=== PATIENT | male | born 1985 | race Hispanic/Latino ===

== ENCOUNTER 2018-01-07 07:38 | Emergency (ER) | payer SELFPAY ==
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
[2018-01-07 08:36] LABS: Absolute Lymphocytes (CBC) 1.1 K/uL (0.7-4.9); Absolute Monocytes 0.4 K/uL (0.1-1.3); Absolute Neutrophil 3.6 K/uL (1.8-8.0); Basophils % 0.1 % (0-1.3); Eosinophils % 0.9 % (0-4.4); Hematocrit 41.3 % (39.6-49.0); Lymphocytes % 22.2 % (15.3-44.8); MCH 29.5 pg (27.0-35.0); MCV 88.7 fL (80-100); MPV 10.2 fL (7.6-11.3); Monocytes % 8.1 % (3.3-12.3); RBC Red Blood Cell Count 4.65 M/uL (4.33-5.43)
[2018-01-07] MEDS ORDERED: KETOROLAC 30 MG/ML INJ ONE (08:38)
[2018-01-07 08:45] LABS: BUN Blood Urea Nitrogen 17 mg/dL (7-18); Bicarbonate 26 mmol/L (21-32); Glucose Level 104 mg/dL (74-106); Potassium 4.4 mmol/L (3.5-5.1); Sodium Level 140 mmol/L (136-145)
== END 2018-01-07 08:46 | disposition home or self-care (01) ==
LOC: ER 07:38
DX: S16.1XXA Strain of muscle, fascia and tendon at neck level, initial encounter (principal); S39.012A Strain of muscle, fascia and tendon of lower back, initial encounter; S29.012A Strain of muscle and tendon of back wall of thorax, initial encounter; S40.012A Contusion of left shoulder, initial encounter; V49.40XA Driver injured in collision with unspecified motor vehicles in traffic accident, initial encounter
CPT/HCPCS: 36415; 70450; 71260; 72125; 74177; 80048; 85025; Q9967

== ENCOUNTER 2018-09-06 09:47 | Emergency (ER) | payer BC, SELFPAY ==
[2018-09-06] MEDS ORDERED: LIDOCAINE 1% W/EPI 1:100,000 MDV 50 ML VIAL ONE (11:27)
[2018-09-06] MEDS ORDERED: TETANUS & DIPHTHERIA TOX,ADULT 0.5 ML VIAL ONE (11:27)
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
== END 2018-09-06 11:36 | disposition home or self-care (01) ==
LOC: ER 09:47
PROC: 0JQ10ZZ Repair Face Subcutaneous Tissue and Fascia, Open Approach (ICD-10-PCS; principal; 2018-09-06)
DX: S01.111A Laceration without foreign body of right eyelid and periocular area, initial encounter (principal); W22.8XXA Striking against or struck by other objects, initial encounter; Y93.89 Activity, other specified; Y92.009 Unspecified place in unspecified non-institutional (private) residence as the place of occurrence of the external cause; Z23 Encounter for immunization
CPT/HCPCS: 90471; 90714; 99283

== ENCOUNTER 2020-10-23 08:49 | Inpatient (IN) | payer BC, SELFPAY ==
--- NOTE | 2020-10-23 09:49 | RAD REPORT ---
EXAM DESCRIPTION: RAD - Chest Single View - 10/23/2020 9:26 am CLINICAL HISTORY: Cough;SOB COMPARISON: None TECHNIQUE: AP portable chest image was obtained 10/23/2020 9:26 am . FINDINGS: Lungs are underinflated. Extensive bilateral airspace opacification is present with relati ve sparing of each apex. Heart and vasculature are normal. No measurable pleural effusion and no pneu mothorax. No acute bony abnormality seen. No acute aortic findings suspected. IMPRESSION: Extensive bilateral airspace opacification with no relevant prior imaging In the acute clinical setting bilateral pneumonia is most likely. In the current clinical environment moderate severity COVID-19 pneumonia would be a primary consideration.
[2020-10-23 10:29] LABS: Absolute Lymphocytes (CBC) 0.3 K/uL (0.7-4.9); Basophils % 0.3 % (0-1.3); Hematocrit 40.7 % (39.6-49.0); Lymphocytes % 3.6 % (15.3-44.8); MPV 8.1 fL (7.6-11.3); RBC Red Blood Cell Count 4.73 M/uL (4.33-5.43)
[2020-10-23] MEDS ORDERED: METHYLPREDNISOLONE 125 MG INJ ONE (10:30)
[2020-10-23] MEDS ORDERED: NA CHLORIDE 0.9% 1,000 ML ONE (10:31)
[2020-10-23] MEDS ORDERED: BENZONATATE 100 MG CAP PO ONE (10:31)
[2020-10-23 10:42] LABS: Protime INR 1.25
[2020-10-23 11:03] LABS: ALT/SGPT 72 U/L (12-78); AST/SGOT 66 U/L (15-37); Albumin 2.5 g/dL (3.4-5.0); Alkaline Phosphatase 51 U/L (45-117); BUN Blood Urea Nitrogen 12 mg/dL (7-18); Bicarbonate 25 mmol/L (21-32); Bilirubin Direct 0.2 mg/dL (0-0.2); Bilirubin Total 0.5 mg/dL (0.2-1.0); Ferritin 6488.3 ng/mL (26-388); Glucose Level 121 mg/dL (74-106); Magnesium 2.2 mg/dL (1.8-2.4); NT PRO-BNP 101 pg/mL (<125); Potassium 3.7 mmol/L (3.5-5.1); Protein, Total 7.5 g/dL (6.4-8.2); Sodium Level 135 mmol/L (136-145); Troponin (Emerg Dept Use Only) < 0.02 ng/mL (0.0-0.045)
--- NOTE | 2020-10-23 11:24 | EDPHYS ---
Physician Documentation [facility] Name: Devan East Age: 34 yrs Sex: Male : 1985 Arrival Date: 10/23/2020 Time: 08:50 Bed 27 Private MD: ED Physician Ole Evangelista HPI: 10/23 09:10 This 34 yrs old Male presents to ER via EMS with complaints of Cough, cp Breathing Difficulty - COVID+. 09:10 The patient or guardian reports cough, that is constant, difficulty breathing. Onset: cp The symptoms/episode began/occurred 3 day(s) ago. Severity of symptoms: in the emergency department the symptoms are unchanged, despite home interventions. Associated signs and symptoms: Pertinent positives: chest pain, with cough, Pertinent negatives: diarrhea, fever, vomiting. Patient reports testing positive for COVID 11 days ago. Historical: - Allergies: 09:30 No Known Allergies; bp - Home Meds: 09:30 None [Active]; bp - PMHx: 09:30 None; bp - Immunization history:: Adult Immunizations up to date. - Social history:: Smoking status: Patient denies any tobacco usage or history of. ROS: 09:15 Constitutional: Negative for body aches, chills, fever, poor PO intake. cp 09:15 Eyes: Negative for injury, pain, redness, and discharge. cp 09:15 ENT: Negative for ear pain, sore throat, difficulty swallowing, difficulty handling secretions. 09:15 Cardiovascular: Positive for chest pain, Negative for edema, palpitations. 09:15 Respiratory: Positive for cough, shortness of breath, at rest. Negative for wheezing. 09:15 Abdomen/GI: Positive for nausea, Negative for abdominal pain, vomiting, diarrhea, constipation. 09:15 Neuro: Negative for altered mental status, dizziness, headache, syncope, weakness. 09:15 All other systems are negative. Exam: 09:20 Constitutional: The patient appears in no acute distress, alert, awake, cp non-diaphoretic, non-toxic, well developed, well nourished. 09:20 Head/Face: Normocephalic, atraumatic. cp 09:20 Eyes: Periorbital structures: appear normal, Conjunctiva: normal, no exudate, no injection, Sclera: no appreciated abnormality, Lids and lashes: appear normal, bilaterally. 09:20 ENT: External ear(s): are unremarkable, Nose: is normal, Mouth: Lips: moist, Oral mucosa: moist, Posterior pharynx: Airway: no evidence of obstruction, patent. 09:20 Neck: ROM/movement: is normal, is supple, without pain, no range of motions limitations, no meningismus. 09:20 Chest/axilla: Inspection: normal, Palpation: is normal, no crepitus, no tenderness. 09:20 Cardiovascular: Rate: normal, Rhythm: regular, Edema: is not appreciated, JVD: is not appreciated. 09:20 Respiratory: the patient does not display signs of respiratory distress, Respirations: labored breathing, that is mild, shallow respirations, that is mild, Breath sounds: bronchial sounds, that are mild, are heard diffusely, decreased breath sounds, that are mild, diffuse, stridor, is not appreciated, wheezing: is not appreciated. 09:20 Abdomen/GI: Inspection: abdomen appears normal, Palpation: abdomen is soft and non-tender, in all quadrants. 09:20 Back: pain, is absent, ROM is normal. 09:20 Skin: cellulitis, is not appreciated, no rash present. 09:20 Neuro: Orientation: to person, place \\T\\ time. Mentation: is normal. 10:23 ECG was reviewed by the Attending Physician. cp Vital Signs: 10:00 BP 118 / 74; Pulse 95; Resp 24; Pulse Ox 99% ; bp 11:00 BP 115 / 76; Pulse 90; Resp 16; Pulse Ox 99% ; bp 12:00 BP 119 / 64; Pulse 54; Resp 24; Pulse Ox 99% ; bp 13:00 BP 122 / 78; Pulse 75; Resp 20; Pulse Ox 100% ; bp 14:00 BP 119 / 70; Pulse 81; Resp 16; Pulse Ox 99% ; bp MDM: 09:02 Patient medically screened. cp 10:00 Differential Diagnosis: Bronchitis Influenza Pneumonia Other respiratory failure, cp pulmonary edema, pulmonary embolism. 12:00 Data reviewed: vital signs, nurses notes, lab test result(s), EKG, radiologic studies, cp CT scan, plain films, and as a result, I will admit patient. 12:00 Test interpretation: by ED physician or midlevel provider: ECG, plain radiologic cp studies. Counseling: I had a detailed discussion with the patient and/or guardian regarding: the historical points, exam findings, and any diagnostic results supporting the discharge/admit diagnosis, lab results, radiology results, the need for further work-up and treatment in the hospital. Response to treatment: the patient's symptoms have mildly improved after treatment. Physician consultation: was contacted at 11:30, regarding admission, to the telemetry unit. patient's condition, GEORGIE Davis hospitalist will admit patient. 10/23 09:07 Order name: Basic Metabolic Panel; Complete Time: 11:06 cp / 11:06 Interpretation: Normal except: NA 135; GLUC 121; GFR 86; CA 8.3. cp 10/23 09:07 Order name: CBC with Diff; Complete Time: 12:33 cp 10/23 10:50 Interpretation: Normal except: SOHAIL% 93.8; LYM% 3.6; MN% 2.3; LYMA 0.3. cp 10/23 09:07 Order name: LFT's; Complete Time: 11:06 cp 10/23 11:06 Interpretation: Normal except: AST 66; ALB 2.5; GLOB 5.0; A/G 0.5. cp 10/23 09:07 Order name: Magnesium; Complete Time: 11:06 cp 10/23 09:07 Order name: NT PRO-BNP; Complete Time: 11:06 cp 10/23 09:07 Order name: PT-INR; Complete Time: 10:49 cp / 11:07 Interpretation: Abnormal: PT 14.4. cp 10/23 09:07 Order name: Troponin (emerg Dept Use Only); Complete Time: 11:06 cp 10/23 11:07 Interpretation: Within normal limits: TROPED < 0.02. cp 10/23 09:07 Order name: CRP; Complete Time: 11:06 cp /02 11:06 Interpretation: Abnormal: C-REACTIVE PROT 178.00. cp / 09:07 Order name: Ferritin; Complete Time: 11:06 cp / 11:07 Interpretation: Abnormal: SILVANA 6488.3. cp 10/23 09:07 Order name: D-Dimer; Complete Time: 10:49 cp 10/23 10:49 Interpretation: Abnormal: D-DIMER 1616. cp / 10:35 Order name: CBC Smear Scan; Complete Time: 12:33 EDMS 10/23 12:33 Interpretation: Reviewed. 10/23 12:52 Order name: COVID-19 : Document "Date of Symptom Onset" if Symptomatic. 10/23 13:08 Order name: Hemoglobin A1c; Complete Time: 22:50 EDMS 10/23 13:52 Order name: CORONAVIRUS EDNJ 10/23 09:07 Order name: XRAY Chest (1 view); Complete Time: 10:20 10/23 10:20 Interpretation: Report reviewed. 10/23 09:07 Order name: EKG; Complete Time: 09:08 cp 10/23 09:07 Order name: Cardiac monitoring; Complete Time: 09:28 cp 10/23 09:07 Order name: EKG - Nurse/Tech; Complete Time: 10:41 cp 10/23 09:07 Order name: IV Saline Lock; Complete Time: 10:41 cp 10/23 10:50 Order name: CT Chest For PE Angio; Complete Time: 11:50 10/23 11:51 Interpretation: Report reviewed. 10/23 15:07 Order name: SARS-COV-2 RT PCR; Complete Time: 22:50 EDMS 10/23 15:38 Order name: Troponin I; Complete Time: 22:50 EDMS 10/24 06:11 Order name: D-Dimer EDNJ 10/24 06:28 Order name: Comprehensive Metabolic Panel EDNJ 10/24 06:28 Order name: Lipid Profile EDNJ 10/24 06:32 Order name: C-Reactive Protein EDNJ 10/24 06:32 Order name: Ferritin EDNJ 10/23 09:07 Order name: Labs collected and sent; Complete Time: 10:41 cp 10/23 09:07 Order name: O2 Per Protocol; Complete Time: 09:28 cp 10/23 09:07 Order name: O2 Sat Monitoring; Complete Time: 09:28 cp EC:23 Rate is 89 beats/min. Rhythm is regular. LA interval is normal. QRS interval is normal. cp QT interval is normal. T waves are Inverted in leads III, aVR. Interpreted by me. Reviewed by me. Administered Medications: 09:45 Drug: NS 0.9% 1000 ml Route: IV; Rate: 1 bolus; Site: left antecubital; bp 14:39 Follow up: IV Status: Completed infusion; IV Intake: 1000ml bp 09:45 Drug: Tessalon Perle (benzonatate) 200 mg Route: PO; bp 12:02 Follow up: Response: No adverse reaction bp 09:50 Drug: SOLU-Medrol (methylPrednisoLONE) 125 mg Route: IVP; Site: left antecubital; bp 12:02 Follow up: Response: No adverse reaction bp Disposition: 10/25 07:12 Co-signature as Attending Physician, Ole Evangelista MD I agree with the assessment and kdr plan of care. Disposition Summary: 10/23/20 11:23 Hospitalization Ordered Hospitalization Status: Inpatient Admission cp Condition: Stable cp Problem: new cp Symptoms: have improved cp Bed/Room Type: Standard cp Provider: Smith Nicole(10/23/20 11:28) cp Location: Telemetry/MedSurg (Inpatient)(10/24/20 17:20) dw Room Assignment: 408(10/24/20 17:20) dw Diagnosis - Other viral pneumonia cp - SARS-associated coronavirus as the cause of diseases classified elsewhere cp - Hypoxemia cp Forms: - Medication Reconciliation Form cp - SBAR form cp Signatures: Dispatcher [employer] Mara Galvan RN RN dw Ole Evangelista MD MD kdr Aquilino Mercer, [employer] BI ADMINISTRATOR-C [employer] BI ADMINISTRATOR-Cla1 Krunal Mas PA PA cp Petey Tavarez, RN RN bp Corrections: (The following items were deleted from the chart) 10/23 11:28 11:23 Eh Ibarra cp cp 14:37 11:23 Telemetry/MedSurg (Inpatient) cp bp 14:37 11:23 cp bp 10/24 17:20 10/23 14:37 [facility] ER HOLD bp dw 10/24 17:20 10/23 14:37 ERHOLD- bp dw
--- NOTE | 2020-10-23 11:24 | ER ---
Nurse's Notes [facility] Name: Devan East Age: 34 yrs Sex: Male : 1985 Arrival Date: 10/23/2020 Time: 08:50 Bed 27 Private MD: Diagnosis: Other viral pneumonia;SARS-associated coronavirus as the cause of diseases classified elsewhere;Hypoxemia Presentation: 10/23 08:51 Chief complaint: EMS states: COVID + 11 days ago, productive cough and diff breathing X iw 3 days, diminished breath sounds was 70's SpO2 on scene, on 6L NC up to 93%. Coronavirus screen: Client presents with at least one sign or symptom that may indicate coronavirus-19. Standard/surgical mask placed on the client. Provider contacted for isolation considerations. Ebola Screen: Patient negative for fever greater than or equal to 101.5 degrees Fahrenheit, and additional compatible Ebola Virus Disease symptoms Patient denies exposure to infectious person. Patient denies travel to an Ebola-affected area in the 21 days before illness onset. No symptoms or risks identified at this time. 08:51 Method Of Arrival: EMS: [facility] iw 08:51 Acuity: DALTON 2 iw 08:52 Risk Assessment: Do you want to hurt yourself or someone else? Patient reports no iw desire to harm self or others. Onset of symptoms was October 23, 2020. 08:54 Care prior to arrival: Medication(s) given: Albuterol Neb x 1, Atrovent Neb x 1, Normal iw saline infusion, 500 mL, Tylenol, 1000 mg, Solu-Medrol 125 mg. 09:00 Initial Sepsis Screen: Does the patient meet any 2 criteria? No. Patient's initial bp sepsis screen is negative. Does the patient have a suspected source of infection? Yes: Productive cough/pneumonia. Triage Assessment: 09:02 General: Appears in no apparent distress. comfortable, Behavior is calm, cooperative, bp appropriate for age. Pain: Denies pain. EENT: No deficits noted. Neuro: Level of Consciousness is awake, alert, obeys commands, Oriented to Appropriate for age. Cardiovascular: Reports. Respiratory: Reports shortness of breath Onset: The symptoms/episode began/occurred yesterday, the patient has moderate shortness of breath. GI: No signs and/or symptoms were reported involving the gastrointestinal system. : No signs and/or symptoms were reported regarding the genitourinary system. Derm: No deficits noted. Musculoskeletal: No deficits noted. Historical: - Allergies: :30 No Known Allergies; bp - Home Meds: :30 None [Active]; bp - PMHx: :30 None; bp - Immunization history:: Adult Immunizations up to date. - Social history:: Smoking status: Patient denies any tobacco usage or history of. Screenin:03 Abuse screen: Denies threats or abuse. Denies injuries from another. Nutritional bp screening: No deficits noted. Tuberculosis screening: No symptoms or risk factors identified. Fall Risk None identified. Assessment: 09:03 General: SEE TRIAGE NOTE. Pain: Denies pain. Neuro: Level of Consciousness is awake, bp alert, obeys commands. Cardiovascular: Rhythm is sinus rhythm. Respiratory: Airway is patent Respiratory effort is even, labored, Respiratory pattern is regular, symmetrical, Breath sounds are coarse bilaterally. GI: No signs and/or symptoms were reported involving the gastrointestinal system. : No signs and/or symptoms were reported regarding the genitourinary system. EENT: No deficits noted. Derm: No deficits noted. Musculoskeletal: No deficits noted. 11:00 Reassessment: No changes from previously documented assessment. Patient and/or family bp updated on plan of care and expected duration. Pain level reassessed. Patient is alert, oriented x 3, equal unlabored respirations, skin warm/dry/pink. 13:00 Reassessment: No changes from previously documented assessment. Patient and/or family bp updated on plan of care and expected duration. Pain level reassessed. ADMIT INITIATED. 14:40 Reassessment: PT TO ER HOLD. SEE [facility]. bp Vital Signs: 10:00 BP 118 / 74; Pulse 95; Resp 24; Pulse Ox 99% ; bp 11:00 BP 115 / 76; Pulse 90; Resp 16; Pulse Ox 99% ; bp 12:00 BP 119 / 64; Pulse 54; Resp 24; Pulse Ox 99% ; bp 13:00 BP 122 / 78; Pulse 75; Resp 20; Pulse Ox 100% ; bp 14:00 BP 119 / 70; Pulse 81; Resp 16; Pulse Ox 99% ; bp ED Course: 08:50 Patient arrived in ED. iw 08:52 Triage completed. iw 08:55 Arm band placed on. iw 08:57 Page, Krunal, PA is PHCP. cp 08:57 Ole Evangelista MD is Attending Physician. cp 09:00 Maintain EMS IV. Dressing intact. Good blood return noted. Site clean \T\ dry. Gauge \T\ bp site: 18 GA RIGHT AC. 09:01 Petey Tavarez, ANDIE is Primary Nurse. bp 09:03 Patient has correct armband on for positive identification. Bed in low position. Call bp light in reach. Side rails up X2. 09:26 XRAY Chest (1 view) In Process Unspecified. EDMS 11:21 Smith Nicole is Hospitalizing Provider. cp 11:21 Eh Ibarra DO is Hospitalizing Provider. cp 11:25 CT Chest For PE Angio In Process Unspecified. EDMS 11:28 Smith Nicole is Hospitalizing Provider. cp 14:38 No provider procedures requiring assistance completed. Patient admitted, IV remains in bp place. 10/24 08:26 Primary Nurse role handed off by Petey Tavarez RN bd Administered Medications: 10/23 09:45 Drug: NS 0.9% 1000 ml Route: IV; Rate: 1 bolus; Site: left antecubital; bp 14:39 Follow up: IV Status: Completed infusion; IV Intake: 1000ml bp 09:45 Drug: Tessalon Perle (benzonatate) 200 mg Route: PO; bp 12:02 Follow up: Response: No adverse reaction bp 09:50 Drug: SOLU-Medrol (methylPrednisoLONE) 125 mg Route: IVP; Site: left antecubital; bp 12:02 Follow up: Response: No adverse reaction bp Intake: 14:39 IV: 1000ml; Total: 1000ml. bp Outcome: 11:23 Decision to Hospitalize by Provider. cp 14:39 Admitted to ER Hold. Please see [facility] for further documentation. bp 14:39 Condition: stable 14:39 Instructed on the need for admit. 10/24 18:00 Patient left the ED. iw Signatures: Dispatcher [employer] EDMS Brenna Holloway Irene, RN RN Krunal Mas PA PA cp Petey Tavarez RN RN bp
--- NOTE | 2020-10-23 11:42 | RAD REPORT ---
EXAM DESCRIPTION: CT - Chest For Pe Angio - 10/23/2020 11:25 am CLINICAL HISTORY: SOB, COVID positive COMPARISON: No comparisons TECHNIQUE: Dynamically enhanced 3 mm thick images of the chest were obtained during administration o f approximately 150mL Isovue 370 IV contrast. Coronal and oblique MIP reconstruction images were gene rated and reviewed. Exam utilizes a protocol to evaluate the pulmonary arterial tree. All CT scans are performed using dose optimization technique as appropriate and may include automated exposure control or mA/KV adjustment according to patient size. FINDINGS: No pulmonary emboli are identified. The aorta as imaged shows no acute or suspicious finding. No pericardial thickening or effusion. Extensive bilateral airspace opacification is present more peripheral than central in distribution. F indings are more pronounced in each lung base. No cavitation or solid mass component. No pleural effu miguel or pleural thickening. No mediastinal or hilar suspicious masses. No chest wall masses or abnormal axillary lymphadenopathy. Heart is borderline enlarged. IMPRESSION: No pulmonary emboli identified. Moderate severity bilateral COVID-19 pneumonia.
[2020-10-23] MEDS ORDERED: ACETAMINOPHEN 500 MG TAB PO PRN (11:57)
[2020-10-23] MEDS ORDERED: ONDANSETRON 4 MG/2 ML VIAL IV PRN (11:57)
[2020-10-23 12:03] LABS: Blood Morphology Comment NOT SEEN (NOT SEEN); Platelet Estimate ADEQ; White Blood Cell Scan OK (OK)
[2020-10-23] MEDS ORDERED: ALBUTEROL INHALER 60 PUFF/8 GM IH PRN (12:07)
[2020-10-23] MEDS ORDERED: LABETALOL 20 MG/4ML SYRINGE IV PRN (12:18)
--- NOTE | 2020-10-23 12:22 | P.HP ---
Certification for Inpatient Patient admitted to: Inpatient With expected LOS: >2 Midnights Patient will require the following post-hospital care: None Practitioner: I am a practitioner with admitting privileges, knowledge of patient current condition, hospital course, and medical plan of care. Services: Services provided to patient in accordance with Admission requirements found in Title 42 Section 412.3 of the Code of Federal Regulations Patient History Date of Service: 10/23/20 Reason for admission: SOB History of Present Illness: Patient is a 34-year-old male with no known past medical history who presents with complaint of shortness of breath that has been ongoing for the past 5 days. Patient reported that he tested Covid positive for October 12, 2019. Patient reports associated signs or symptoms of weakness, fatigue, headache, fever, generalized body pains, chest tightness, chills, loss of appetite taste smell. Patient denies any other signs or symptoms. Symptoms are aggravated or relieved by nothing. Patient said to present to the hospital due to worsening symptoms. Of note, patient reported that his O2 sat dropped to 70% on room air while he was at home. Allergies No Known Allergies Allergy (Unverified 10/23/20 13:23) Home medications list reviewed: No - Past Medical/Surgical History Past Medical History: Reviewed- Non-Contributory -: Reviewed and none Past Surgical History: Reviewed- Non-Contributory - Family History Family History: Reviewed- Non-Contributory (Reviewed and patient unaware of family history) - Social History Smoking Status: Never smoker Alcohol use: No CD- Drugs: No Caffeine use: No Place of Residence: Home Review of Systems General: Fever, Chills, Weakness, Other (Fatigue) Eyes: Unremarkable ENT: Unremarkable Respiratory: Cough, Shortness of Breath, SOB with Excertion Cardiovascular: Unremarkable Gastrointestinal: Unremarkable Genitourinary: Unremarkable Musculoskeletal: Unremarkable Integumentary: Unremarkable Neurological: Weakness Lymphatics: Unremarkable Physical Examination - Physical Exam General: Alert, In no apparent distress, Oriented x3 HEENT: Atraumatic, PERRLA, Mucous membr. moist/pink, EOMI, Sclerae nonicteric Neck: Supple, 2+ carotid pulse no bruit, No LAD, Without JVD or thyroid abnormality Respiratory: Clear to auscultation bilaterally, Diminished Cardiovascular: No edema, Regular rate/rhythm, Normal S1 S2 Capillary refill: <2 Seconds Gastrointestinal: Normal bowel sounds, No tenderness Musculoskeletal: No tenderness Integumentary: No rashes Neurological: Normal gait, Normal speech, Normal tone, Normal affect Lymphatics: No axilla or inguinal lymphadenopathy External genitalia: Deferred Rectal: Deferred - Studies Laboratory Data (last 24 hrs) 10/23/20 10:20: PT 14.4 H, INR 1.25 10/23/20 10:20: WBC 7.70, Hgb 14.0, Hct 40.7, Plt Count 158 10/23/20 10:20: Sodium 135 L, Potassium 3.7, BUN 12, Creatinine 0.99, Glucose 121 H, Magnesium 2.2, Total Bilirubin 0.5, AST 66 H, ALT 72, Alkaline Phosphatase 51 Assessment and Plan - Plan --COVID-19 pneumonia. Pulmonology consulted. Patient started on antibiotics, andsteroids.Continue supportive care with pepcid\vitamin C\thiamine\zinc\vitamin D3. Will await further recommendation from wreath machine tender. --COVID-19 infection. Continue current treatment regimen. Inflammatory markers pending. Further management per wreath machine tender . --CKD 2. Baseline functions are normal. We will continue to monitor renal function. --Headache. Tylenol as needed. --DVT prophylaxis with Lovenox SubQ. Documentation of Current Medications in the Medical Record - 18+ years old: Code: G8427 - current medications obtained, updated, or reviewed. Pain Assessment and Follow-Up - 18+ years old: Code: G8730 - pain assessment positive with standardized tool AND a follow up plan is documented. I have had discussion about advanced directives with the patient and /or family during this hospital admission. Addressed code status and /or goals of care. Spent more than 15 minutes. Case discussed withpatient and nurse. Discharge Plan: Home Plan to discharge in: Greater than 2 days - Advance Directives Does patient have a Living Will: No Does patient have a Durable POA for Healthcare: No - Code Status/Comfort Care Code Status Assessed: Yes Code Status: Full Code Physician Review: Patient Assessed, Agree with Above Assessment and Plan Critical Care: No
[2020-10-23] MEDS ORDERED: AZITHROMYCIN IV 500 MG in NA CHLORIDE 0.9% 250 ML IVPB SCH (13:30)
[2020-10-23] MEDS ORDERED: CEFTRIAXONE/SWI 1gm 1 GM/10 ML SYR IV SCH (13:30)
[2020-10-23] MEDS ORDERED: ALBUTEROL 2.5 MG/3 ML NEB SOL NEB SCH (14:00)
[2020-10-23] MEDS ORDERED: IPRATROPIUM BROM 0.5MG/2.5ML NEB SCH (14:00)
[2020-10-23] MEDS ORDERED: CEFTRIAXONE/SWI 1gm 1 GM/10 ML SYR ONE (15:50)
[2020-10-23 18:38] VITALS: BMI 29.0
[2020-10-24 06:27] LABS: ALT/SGPT 59 U/L (12-78); AST/SGOT 49 U/L (15-37); Albumin 2.3 g/dL (3.4-5.0); Alkaline Phosphatase 48 U/L (45-117); BUN Blood Urea Nitrogen 17 mg/dL (7-18); Bicarbonate 27 mmol/L (21-32); Bilirubin Total 0.4 mg/dL (0.2-1.0); Glucose Level 148 mg/dL (74-106); HDL Cholesterol 22 mg/dL (40-60); LDL Cholesterol, Calculated 89 (<130); Protein, Total 7.1 g/dL (6.4-8.2); Sodium Level 138 mmol/L (136-145)
[2020-10-24 06:32] LABS: Ferritin 6187.6 ng/mL (26-388)
[2020-10-24] MEDS ORDERED: IVERMECTIN 3 MG TABLET PO SCH (08:00)
[2020-10-24] MEDS: METHYLPREDNISOLONE 40 MG INJ IV SCH ×2 (09:00→21:01)
[2020-10-24] MEDS: ENOXAPARIN 40 MG/0.4 ML SQ SCH (09:00)
[2020-10-24] MEDS ORDERED: dexAMETHasone 10 MG/ML VIAL IV SCH (09:00)
[2020-10-24] MEDS ORDERED: ENOXAPARIN 40 MG/0.4 ML SQ ONE (09:34)
[2020-10-24] MEDS ORDERED: METHYLPREDNISOLONE 125 MG INJ ONE (09:34)
--- NOTE | 2020-10-24 13:07 | P.CNS ---
Date of Consult: 10/24/20 Reason for Consult: COVID pneumonia Chief Complaint: SOB History of Present Illness: AGe 34 Aw zeinab failure from COVID penumonia/ hypoxis OA/ Now on Ncan Allergies No Known Allergies Allergy (Unverified 10/23/20 13:23) Home Medications: NK [No Home Meds] 10/24/20 - Past Medical/Surgical History -: Reviewed and none - Social History Alcohol use: No CD- Drugs: No Caffeine use: No Place of Residence: Home Review of Systems Respiratory: Shortness of Breath Physical Examination Temp Pulse Resp BP Pulse Ox 98.8 F 80 29 H 123/60 92 10/24/20 08:20 10/24/20 08:20 10/24/20 08:20 10/24/20 08:20 10/24/20 08:20 General: Alert, Oriented x3, Mild distress - Problems (1) Pneumonia due to COVID-19 virus Current Visit: Yes Status: Acute Plan: Age aw COVID pneumonia/Doing well Ct scan COVID pneumonia/ Labs rev/ poss DChome am
--- NOTE | 2020-10-24 16:23 | P.PN ---
Subjective Date of Service: 10/24/20 Chief Complaint: SOB Subjective: Improving (feeling slightly better since admission yesterday, on 3-4 L NC, +cough, desaturates with coughing fits) Review of Systems 10-point ROS is otherwise unremarkable Physical Examination - Vital Signs Temperature: 98.8 F Blood Pressure: 122/80 Pulse: 64 Respirations: 29 Pulse Ox (%): 92 Assessment & Plan Physician Review Additional Text: Physical Exam General: aaox3, NAD HEENT: normal conjunctiva, sclera anicteric Respiratory: nonlabored respirations on 3L NC, +cough nonproductive Cardiovascular: No edema, Regular rate/rhythm Gastrointestinal: soft, nontender, nondistended Integumentary: No rashes Neurological: moves all extremities, normal speech Assessment and Plan acute hypoxemic respiratory failure secondary to COVID-19 pneumonia treatment per covid protocol - steroids, vitamin supplementation wean O2 as tolerated daily room air sats, eval for home o2 pulm consulted elevated inflammatory markers, may benefit from baricitinib renal function normal lovenox anticipate dc home tomorrow if improves Time Spent Managing Pts Care (In Minutes): 35
[2020-10-24 22:39] LABS: Urine Appearance CLEAR (Clear); Urine Bilirubin NEGATIVE (Negative); Urine Blood NEGATIVE (Negative); Urine Color YELLOW (Yellow); Urine Glucose NEGATIVE (Negative); Urine Protein TRACE (Negative); Urine Specific Gravity 1.025 (1.005-1.030)
[2020-10-24 22:45] LABS: Urine Microscopic Reflex ORDER UMIC
[2020-10-24 23:16] LABS: Urine Bacteria <20 /HPF (NONE SEEN); Urine RBC <5 /HPF (NONE SEEN)
[2020-10-25 03:52] LABS: Absolute Lymphocytes (CBC) 0.5 K/uL (0.7-4.9); Basophils % 0.1 % (0-1.3); Hematocrit 37.2 % (39.6-49.0); Lymphocytes % 7.8 % (15.3-44.8); MPV 8.6 fL (7.6-11.3); RBC Red Blood Cell Count 4.29 M/uL (4.33-5.43)
[2020-10-25 04:42] LABS: BUN Blood Urea Nitrogen 20 mg/dL (7-18); Bicarbonate 27 mmol/L (21-32); Ferritin 3831.7 ng/mL (26-388); Glucose Level 154 mg/dL (74-106); Magnesium 2.6 mg/dL (1.8-2.4); Potassium 3.8 mmol/L (3.5-5.1); Sodium Level 137 mmol/L (136-145)
[2020-10-25 04:55] LABS: Phosphorus 4.2 mg/dL (2.5-4.9)
[2020-10-25] MEDS ORDERED: POTASSIUM CL SA 10 MEQ TAB PO ONE (09:00)
[2020-10-25] MEDS: METHYLPREDNISOLONE 40 MG INJ IV SCH (09:00)
[2020-10-25] MEDS: ENOXAPARIN 40 MG/0.4 ML SQ SCH (09:00)
[2020-10-25] MEDS ORDERED: BENZONATATE 100 MG CAP PO PRN (12:15)
--- NOTE | 2020-10-25 12:20 | P.DS ---
Admission Date: 10/23/20 Discharge Date: 10/25/20 Disposition: ROUTINE DISCHARGE Discharge Condition: GOOD Reason for Admission: SOB Consultations: Pulm - Dr. Her Procedures: CXR (10/23): Lungs are underinflated. Extensive bilateral airspace opacification is present with relative sparing of each apex. Heart and vasculature are normal. No measurable pleural effusion and no pneumothorax. No acute bony abnormality seen. No acute aortic findings suspected. IMPRESSION: Extensive bilateral airspace opacification with no relevant prior imaging In the acute clinical setting bilateral pneumonia is most likely. In the current clinical environment moderate severity COVID-19 pneumonia would be a primary consideration. CTA Chest (10/23): FINDINGS: No pulmonary emboli are identified. The aorta as imaged shows no acute or suspicious finding. No pericardial thickening or effusion. Extensive bilateral airspace opacification is present more peripheral than central in distribution. Findings are more pronounced in each lung base. No cavitation or solid mass component. No pleural effusion or pleural thickening. No mediastinal or hilar suspicious masses. No chest wall masses or abnormal axillary lymphadenopathy. Heart is borderline enlarged. IMPRESSION: No pulmonary emboli identified. Moderate severity bilateral COVID-19 pneumonia. Problem List acute hypoxemic respiratory failure secondary to COVID-19 pneumonia Brief History of Present Illness: 34-year-old male with no known past medical history who presents with complaint of shortness of breath that has been ongoing for the past 5 days. Patient reported that he tested Covid positive for October 12, 2019. Patient reports associated signs or symptoms of weakness, fatigue, headache, fever, generalized body pains, chest tightness, chills, loss of appetite taste smell. Patient denies any other signs or symptoms. Symptoms are aggravated or relieved by nothing. Patient said to present to the hospital due to worsening symptoms. Of note, patient reported that his O2 sat dropped to 70% on room air while he was at home. Hospital Course: Patient was treated with IV steroids and had improvement of his symptoms. He was stable on 3-4L NC and set up with home oxygen. He was ambulating, tolerating diet, and breathing more comfortably on day of discharge. Follow up with PCP in 3-5 days. Follow up with Dr. Her in ~1 week. Vital Signs/Physical Exam: Physical Exam General: aaox3, NAD HEENT: normal conjunctiva, sclera anicteric Respiratory: nonlabored respirations on 3L NC, +cough nonproductive Cardiovascular: No edema, Regular rate/rhythm Gastrointestinal: soft, nontender, nondistended Integumentary: No rashes Neurological: moves all extremities, normal speech Temp Pulse Resp BP Pulse Ox 98.6 F 61 22 H 118/71 94 10/25/20 08:00 10/25/20 08:00 10/25/20 08:00 10/25/20 08:00 10/25/20 08:00 Laboratory Data at Discharge: WBC 6.00 K/uL (4.3-10.9) D 10/25/20 03:24 Hgb 12.9 g/dL (13.6-17.9) L 10/25/20 03:24 Hct 37.2 % (39.6-49.0) L 10/25/20 03:24 Plt Count 205 K/uL (152-406) D 10/25/20 03:24 PT 14.4 SECONDS (9.5-12.5) H 10/23/20 10:20 INR 1.25 10/23/20 10:20 Sodium 137 mmol/L (136-145) 10/25/20 03:24 Potassium 3.8 mmol/L (3.5-5.1) 10/25/20 03:24 BUN 20 mg/dL (7-18) H 10/25/20 03:24 Creatinine 0.75 mg/dL (0.55-1.3) 10/25/20 03:24 Glucose 154 mg/dL (74-106) H 10/25/20 03:24 Phosphorus 4.2 mg/dL (2.5-4.9) 10/25/20 03:24 Magnesium 2.6 mg/dL (1.8-2.4) H 10/25/20 03:24 Total Bilirubin 0.4 mg/dL (0.2-1.0) 10/24/20 05:08 AST 49 U/L (15-37) H 10/24/20 05:08 ALT 59 U/L (12-78) 10/24/20 05:08 Alkaline Phosphatase 48 U/L (45-117) 10/24/20 05:08 Troponin I < 0.02 ng/mL (0.0-0.045) 10/23/20 14:35 Triglycerides 149 mg/dL (<150) 10/24/20 05:08 Cholesterol 141 mg/dL (<200) 10/24/20 05:08 HDL Cholesterol 22 mg/dL (40-60) L 10/24/20 05:08 Cholesterol/HDL Ratio 6.41 10/24/20 05:08 Home Medications: Aspirin [Aspirin EC 81 MG] 81 mg PO DAILY 30 Days #30 tablet. 10/25/20 Benzonatate [Tessalon Perle] 100 mg PO TID PRN 7 Days #21 cap 10/25/20 predniSONE [Prednisone] 20 mg PO SEECOM #21 tablet 10/25/20 New Medications: Aspirin [Aspirin EC 81 MG] 81 mg PO DAILY 30 Days #30 tablet. predniSONE [Prednisone] 20 mg PO SEECOM #21 tablet Benzonatate [Tessalon Perle] 100 mg PO TID PRN 7 Days #21 cap PRN Reason: Cough Physician Discharge Instructions: You were found to have COVID-19 pneumonia. You improved with steroids. You are discharged home with oxygen and steroid medications. Use oxygen at home to maintain oxygen saturation > 88%. Expected to drop when you walk around, but it's ok as long as it comes back up quickly. Please follow up with Dr. Her in ~1 week. Diet: Regular Activity: Ad katie Followup: Dakota Her MD [ACTIVE - CAN ADMIT] - NONE,NONE [Primary Care Provider] - Time spent managing pt's care (in minutes): 40
[2020-10-25 12:41] VITALS: BP 133/74; TEMP 97.4
[2020-10-25 17:33] VITALS: O2SAT 96
== END 2020-10-25 18:00 | disposition home or self-care (01) | DRG 177 ==
LOC: ER 08:49 → ERHOLD 11:53 → 4TH 10-24 17:53
PROVIDERS: ADMIT Internal Medicine; ATTEND Internal Medicine
DX: U07.1 COVID-19 (principal); J12.82 Pneumonia due to coronavirus disease 2019; J96.01 Acute respiratory failure with hypoxia
CPT/HCPCS: 36415; 71045; 71275; 80048; 80053; 80061; 80076; 81003; 81015; 82728; 83036; 83735; 83880; 84100; 84484; 85025; 85379; 85610; 86140; 93005; 94010; 96361; 96374; 99285; J0456; J0696; J1650; J2920; J2930; J7030; J7050; Q9967; U0003

== ENCOUNTER 2024-02-29 00:43 | Emergency (ER) | payer SELFPAY ==
[2024-02-29] MEDS ORDERED: NA CHLORIDE 0.9% 1,000 ML ONE (01:08)
[2024-02-29] MEDS ORDERED: ONDANSETRON 4 MG/2 ML VIAL ONE (01:08)
[2024-02-29] MEDS ORDERED: KETOROLAC 30 MG/ML INJ ONE (01:08)
[2024-02-29 01:38] LABS: Anion Gap 10.8 mEq/L (5.0-15.0); Potassium 3.8 mEq/L (3.5-5.1)
[2024-02-29 01:39] LABS: Absolute Lymphocytes (CBC) 1.5 K/uL (0.7-4.9); Absolute Monocytes 0.7 K/uL (0.1-1.3); Absolute Neutrophil 8.6 K/uL (1.8-8.0); Basophils % 0.3 % (0-1.3); Hematocrit 47.5 % (39.6-49.0); Hemoglobin 15.8 g/dL (13.6-17.9); Lymphocytes % 13.6 % (15.3-44.8); MCHC 33.3 g/dL (32.0-36.0); MCV 90.1 fL (80-100); MPV 9.6 fL (7.6-11.3); Monocytes % 6.1 % (3.3-12.3); Platelets 196 thou/uL (152-406); RBC Red Blood Cell Count 5.27 M/uL (4.33-5.43); Red Cell Distribution Width 14.4 % (12.1-15.2)
--- NOTE | 2024-02-29 03:08 | ER ---
Nurse's Notes [facility] Name: Devan East Age: 38 yrs Sex: Male : 1985 Arrival Date: 02/29/2024 Time: 00:43 Bed 20 Private MD: Diagnosis: Headache Presentation: 02/28 01:05 Chief complaint: Patient states: headache since Friday evening I eat and it gets better vc1 for a little bit then I throw up and it comes back. I can't keep any food or water down. Coronavirus screen: Client denies travel out of the [place] in the last 14 days. headache, nausea, vomiting. Client presents with at least one sign or symptom that may indicate coronavirus-19. Ebola Screen: Patient negative for fever greater than or equal to 101.5 degrees Fahrenheit, and additional compatible Ebola Virus Disease symptoms Patient denies exposure to infectious person. Patient denies travel to an Ebola-affected area in the 21 days before illness onset. No symptoms or risks identified at this time. Initial Sepsis Screen: Does the patient meet any 2 criteria? No. Patient's initial sepsis screen is negative. Does the patient have a suspected source of infection? No. Patient's initial sepsis screen is negative. Risk Assessment: Do you want to hurt yourself or someone else? Patient reports no desire to harm self or others. Onset of symptoms was February 29, 2024. Care prior to arrival: None. 01:05 Method Of Arrival: Ambulatory vc1 01:05 Acuity: DALTON 3 vc1 Triage Assessment: 01:11 Headache History: Denies prior headaches. General: Appears in no apparent distress. vc1 uncomfortable, Behavior is calm, cooperative, appropriate for age. Pain: Complains of pain in forehead Pain does not radiate. Pain currently is 3 out of 10 on a pain scale. Quality of pain is described as pressure, Pain began 1 day ago. Is continuous, Also complains of nausea, vomiting. EENT: No deficits noted. No signs and/or symptoms were reported regarding the EENT system. Neuro: Level of Consciousness is awake, alert, obeys commands, Oriented to person, place, time, situation, Appropriate for age Reports headache in entire frontal area, since Friday evening. Cardiovascular: Capillary refill < 3 seconds Patient's skin is warm and dry. Respiratory: Airway is patent Respiratory effort is even, unlabored, Respiratory pattern is regular, symmetrical. GI: Abdomen is round non-distended, Reports nausea, vomiting. : No deficits noted. No signs and/or symptoms were reported regarding the genitourinary system. Derm: Skin is intact, is healthy with good turgor, Skin is dry, Skin is normal, Skin temperature is warm. Musculoskeletal: Circulation, motion, and sensation intact. Range of motion: intact in all extremities. Historical: - Allergies: 01:11 No Known Allergies; vc1 - Home Meds: 01:11 None [Active]; vc1 - PMHx: :11 None; vc1 - PSHx: 01:11 None; vc1 - Immunization history:: Client reports receiving the 1st dose of the Covid vaccine. - Infectious Disease History:: Denies. - Social history:: Smoking status: Patient denies any tobacco usage or history of. Screenin:05 [facility] ED Fall Risk Assessment (Adult) History of falling in the last 3 months, jj7 including since admission No falls in past 3 months (0 pts) Confusion or Disorientation No (0 pts) Intoxicated or Sedated No (0 pts) Impaired Gait No (0 pts) Mobility Assist Device Used No (0 pt) Altered Elimination No (0 pt) Score/Fall Risk Level 0 - 2 = Low Risk Oriented to surroundings, Maintained a safe environment, Educated pt \T\ family on fall prevention, incl call for assistance when getting out of bed, Assessed \T\ reinforced patient's understanding of fall precautions. Abuse screen: Denies threats or abuse. Nutritional screening: No deficits noted. Tuberculosis screening: No symptoms or risk factors identified. Assessment: 01:05 Pain: Complains of pain in forehead Pain currently is 5 out of 10 on a pain scale. jj7 Neuro: Reports headache frontal area. 02:00 Reassessment: Patient is alert, oriented x 3, equal unlabored respirations, skin jj7 warm/dry/pink. General: Appears in no apparent distress. comfortable. Vital Signs: 01:05 BP 145 / 87; Pulse 87; Resp 14; Temp 98.5; Pulse Ox 100% ; Weight 117.93 kg; Height 6 vc1 ft. 1 in. ; Pain 310; 02:00 BP 121 / 87; Pulse 73; Resp 19; Pulse Ox 96% ; jj7 03:15 BP 111 / 71; Pulse 74; Resp 17; Temp 98.3; Pulse Ox 97% ; jj7 01:05 Body Mass Index 34.30 (117.93 kg, 185.42 cm) vc1 01:05 Pain Scale: Adult vc1 ED Course: 00:46 Patient arrived in ED. im 00:49 Donell Castillo MD is Attending Physician. ec2 01:03 Ysabel Zhu RN is Primary Nurse. jj7 01:05 Patient has correct armband on for positive identification. Bed in low position. Call jj7 light in reach. Provided Education on: USE OF CALL RODRIGUEZ. 01:11 Triage completed. vc1 01:11 Arm band placed on right wrist. vc1 01:32 CT Head Brain wo Cont In Process Unspecified. EDMS 01:36 Missed attempt(s): 20 gauge in right wrist. Bleeding controlled, band aid applied, hw catheter tip intact. 01:36 Inserted saline lock: 20 gauge in left antecubital area, using aseptic technique. Blood hw collected. Flushed with 10 mL NS. 03:15 No provider procedures requiring assistance completed. IV discontinued, intact, jj7 bleeding controlled, No redness/swelling at site. Pressure dressing applied. Administered Medications: 01:23 Drug: NS 0.9% IV 250 ml IV at bolus once; to be given as a bolus over 30 minutes Route: jj7 IV; Rate: bolus; Site: left antecubital; 02:00 Follow up: IV Status: Completed infusion jj7 01:23 Drug: Ketorolac IVP 15 mg IVP once Route: IVP; Site: left antecubital; jj7 02:00 Follow up: Response: Pain is decreased jj7 01:23 Drug: Ondansetron IVP 4 mg IVP once; over 2 minutes Route: IVP; Site: left antecubital; jj7 02:00 Follow up: Response: Marked relief of symptoms; Nausea is decreased jj7 Medication: 01:05 VIS not applicable for this client. jj7 Outcome: 03:08 Discharge ordered by . ec2 03:15 Discharged to home ambulatory, jj7 03:15 Condition: improved 03:15 Discharge instructions given to family, Instructed on discharge instructions, medication usage, Demonstrated understanding of instructions, medications, Prescriptions given X 1, 03:18 Patient left the ED. jj7 Signatures: Dispatcher [employer] EDMS Alyssa Snyder RN RN vc1 Ysabel Zhu RN RN jj7 Michelle Merchant Edwin, MD MD ec2 Hannah Zazueta Corrections: (The following items were deleted from the chart) 04:20 04:19 Patient left the ED. jj7 jj7
--- NOTE | 2024-02-29 03:08 | EDPHYS ---
Physician Documentation [facility] Name: Devan Eats Age: 38 yrs Sex: Male : 1985 Arrival Date: 02/29/2024 Time: 00:43 Bed 20 Private MD: ED Physician Donell Castillo HPI: 02/28 01:17 This 38 yrs old Male presents to ER via Ambulatory with complaints of ec2 Headache, Vomiting. 01:17 Patient arrives today for evaluation of headache along with nausea and vomiting. ec2 Reports has been having intermittent symptoms ongoing for the past couple of days. Patient reports no specific alleviating or exacerbating factors. Denies any cough and cold symptoms. Patient reports no urinary complaints. Denies any chest pain.. Historical: - Allergies: 01:11 No Known Allergies; vc1 - Home Meds: 01:11 None [Active]; vc1 - PMHx: 01:11 None; vc1 - PSHx: 01:11 None; vc1 - Immunization history:: Client reports receiving the 1st dose of the Covid vaccine. - Infectious Disease History:: Denies. - Social history:: Smoking status: Patient denies any tobacco usage or history of. ROS: 01:18 Constitutional: as per hpi ec2 Exam: 01:18 Constitutional: GEN: NAD Head: atraumatic Eyes: EOMI Ears: External ears are ec2 normal. CV: regular rate LUNGS: no respiratory distress ABD: non-distended SKIN: no evidence of rashes MSK: no evidence of trauma. Neuro: Cranial nerves II through XII intact, strength intact upper extremities, sensation intact throughout. Vital Signs: 01:05 BP 145 / 87; Pulse 87; Resp 14; Temp 98.5; Pulse Ox 100% ; Weight 117.93 kg; Height 6 vc1 ft. 1 in. ; Pain 3/10; 02:00 BP 121 / 87; Pulse 73; Resp 19; Pulse Ox 96% ; jj7 03:15 BP 111 / 71; Pulse 74; Resp 17; Temp 98.3; Pulse Ox 97% ; jj7 01:05 Body Mass Index 34.30 (117.93 kg, 185.42 cm) vc1 01:05 Pain Scale: Adult vc1 MDM: 01:03 Medical Screening Exam initiated ec2 01:18 Data reviewed: vital signs, nurses notes. ED course: Patient arrives today for ec2 evaluation of headache along with nausea and vomiting. Examination remarkable for neuro intact individuals otherwise in no acute distress. Will obtain lab work, CT imaging. Differential diagnosis includes nonspecific headache syndrome, intracranial mass, gastroenteritis.. 03:07 ED course: CT scan of the head shows no acute intracranial abnl. Will discharge home. ec2 Turn precautions given.. 02/28 01:04 Order name: CBC with Diff; Complete Time: :48 ec2 02/28 01:04 Order name: BMP; Complete Time: 48 ec2 02/28 01:04 Order name: CT Head Brain wo Cont ec2 02/28 01:04 Order name: IV Start; Complete Time: :23 ec2 Administered Medications: : Drug: NS 0.9% IV 250 ml IV at bolus once; to be given as a bolus over 30 minutes Route: jj7 IV; Rate: bolus; Site: left antecubital; 02:00 Follow up: IV Status: Completed infusion j7 01:23 Drug: Ketorolac IVP 15 mg IVP once Route: IVP; Site: left antecubital; jj7 02:00 Follow up: Response: Pain is decreased jj7 01:23 Drug: Ondansetron IVP 4 mg IVP once; over 2 minutes Route: IVP; Site: left antecubital; jj7 02:00 Follow up: Response: Marked relief of symptoms; Nausea is decreased jj7 Disposition Summary: 02/29/24 03:08 Discharge Ordered Notes: Location: Home ec2 Condition: Stable ec2 Diagnosis - Headache ec2 Followup: ec2 - With: Private Physician - When: - Reason: Re-evaluation by your physician Discharge Instructions: - Discharge Summary Sheet ec2 - General Headache Without Cause ec2 Forms: - Medication Reconciliation Form ec2 - Antibiotic Education ec2 - Prescription Opioid Use ec2 - Patient Portal Instructions ec2 - Leadership Thank You Letter ec2 Prescriptions: - Compazine 10 mg Oral Tablet - take 1 tablet ORAL route every 8 hours As needed; 20 tablet; Refills: 0, ec2 Product Selection Permitted Signatures: Dispatcher [facility] Alyssa Lopez RN RN vc1 Yasbel Zhu RN RN jj7 Castillo, Donell, MD MD ec2
--- NOTE | 2024-02-29 03:13 | RAD REPORT ---
CT HEAD WITHOUT IV CONTRAST INDICATION: Headache. COMPARISON: CT head 01/07/2018 TECHNIQUE: CT images of the head were obtained without contrast. Multiplanar reformats were provided. Dose lowering techniques such as automated exposure control, iterative reconstruction, and mA and/or kV adjustment for patient size was utilized for this examination. FINDINGS: PARENCHYMA: No acute arterial territory infarct. No acute intracranial hemorrhage. No mass effect or midline shift. VENTRICLES: Normal in size for patient's age. EXTRA-AXIAL: No focal collection. Patent basilar cisterns. ORBITS: Unremarkable. BONES: No acute finding. PARANASAL SINUSES/MASTOIDS/MIDDLE EARS: Clear. SOFT TISSUES: No acute findings. OTHER: None. IMPRESSION: No acute intracranial abnormality. Electronically signed by: Consuelo Montana MD 02/29/2024 03:[address] [facility] Due to temporary technical issues with the PACS/? reporting system, reports are being gabriela d by the in-house radiologist without review as a courtesy to ensure prompt reporting the interpreting radiologist is fully responsible for the content of the report. Transcribed Date/Time: 02/29/2024 3:12 AM
[2024-02-29 09:46] VITALS: BP 111/71; TEMP 98.3; O2SAT 97
== END 2024-02-29 04:19 | disposition home or self-care (01) ==
LOC: ER 00:43
DX: R51.9 Headache, unspecified (principal); R11.2 Nausea with vomiting, unspecified
CPT/HCPCS: 36415; 70450; 80048; 85025; 96361; 96374; 96375; 99284; J2405; J7030